=== PATIENT | male | born 1950 | race Caucasian/White ===

== ENCOUNTER 2016-09-20 21:23 | Emergency (ER) | payer OTHER ==
[~2016-09-20] VITALS: Ht 190.5 cm; Wt 84.0 kg
[~2016-09-20 21:23] MED LIST: ASPI-621 PO; ATOR80TA75 PO; CARV3.1212 PO; TICA90TA PO
[2016-09-20] MEDS ORDERED: SODIUM CHLORIDE FLUSH 10ML SYR IVF ONE (22:00)
[2016-09-20] MEDS ORDERED: NITROGLYCERIN OINT 2%, 1GM TP ONE ×2 (22:00→22:11)
[2016-09-20 22:32] LABS: BLOOD UREA NITROGEN 14 mg/dL (7-18)
[2016-09-20 22:37] LABS: IS PT STATUS REG ER OR PRE ER? YES
[2016-09-21 01:03] LABS: IS PT STATUS REG ER OR PRE ER? YES
[2016-09-21 01:30] VITALS: BP 108/53
== END 2016-09-21 01:32 | disposition home or self-care (01) ==
LOC: ED 22:16
DX: R07.89 Other chest pain (principal); E78.5 Hyperlipidemia, unspecified; F17.210 Nicotine dependence, cigarettes, uncomplicated; I25.2 Old myocardial infarction
CPT/HCPCS: 36415; 71010; 80048; 82040; 84484; 85025; 85610; 85730; 93005

== ENCOUNTER 2017-03-02 21:15 | Emergency (ER) | payer OTHER ==
[~2017-03-02] VITALS: Ht 190.5 cm; Wt 86.0 kg
[~2017-03-02 21:15] MED LIST changes: +ATOR-2 PO; -ATOR80TA75 PO
[2017-03-02] MEDS ORDERED: NITROGLYCERIN SINGLE TAB 0.4 MG SL ONE (21:52)
[2017-03-02] MEDS ORDERED: CARV3.122 PO (21:53)
[2017-03-02] MEDS ORDERED: NITROGLYCERIN SINGLE TAB 0.4 MG SL PRN (22:00)
[2017-03-02] MEDS ORDERED: ASPIRIN 81 MG TABLET CHEW PO ONE (22:00)
[2017-03-02 22:05] LABS: HEMATOCRIT 44.4 % (39.2-51.8); HEMOGLOBIN 14.9 g/dL (13.7-18.0); WHITE BLOOD COUNT 6.6 x10^3/uL (3.4-10)
[2017-03-02 22:16] LABS: BLOOD UREA NITROGEN 14 mg/dL (7-18)
[2017-03-02 22:20] LABS: IS PT STATUS REG ER OR PRE ER? YES
[2017-03-02 23:08] VITALS: BP 131/74
== END 2017-03-02 23:15 | disposition home or self-care (01) ==
LOC: ED 23:00
DX: R07.89 Other chest pain (principal); J44.9 Chronic obstructive pulmonary disease, unspecified; E78.5 Hyperlipidemia, unspecified; I21.4 Non-ST elevation (NSTEMI) myocardial infarction
CPT/HCPCS: 36415; 71020; 80048; 82040; 84484; 85025; 93005; 99285

== ENCOUNTER 2017-05-16 23:56 | Inpatient (IN) | payer OTHER ==
[~2017-05-16] VITALS: Ht 190.5 cm; Wt 83.5 kg
[~2017-05-16 23:56] MED LIST changes: +CARV3.122 PO
[2017-05-17] MEDS ORDERED: SODIUM CHLORIDE 0.9% 1,000 ML IV ONE (00:21)
[2017-05-17] MEDS ORDERED: SODIUM CHLORIDE FLUSH 10ML SYR IVF ONE (00:30)
[2017-05-17] MEDS ORDERED: ONDANSETRON 2MG/ML, 2ML IVPush ONE (00:30)
[2017-05-17] MEDS ORDERED: ASPIRIN 81 MG TABLET CHEW PO ONE (00:30)
[2017-05-17] MEDS ORDERED: SODIUM CHLORIDE 0.9% 1,000ML IVBOLUS ONE (00:30)
[2017-05-17] MEDS ORDERED: MORPHINE SULFATE 4 MG/ML, 1ML IVPush PRN (00:30)
[2017-05-17] MEDS ORDERED: ONDANSETRON ODT 4 MG ONE (00:30)
[2017-05-17] MEDS ORDERED: MORPHINE SULFATE 4 MG/ML, 1ML ONE (00:31)
[2017-05-17] MEDS ORDERED: ASPIRIN 81 MG TABLET CHEW ONE (00:31)
[2017-05-17 00:43] LABS: BASOPHILS # (AUTO) 0.04 x10^3/uL (0-0.1); BASOPHILS % (AUTO) 1 % (0-1); EOSINOPHILS # (AUTO) 0.27 x10^3/uL (0-0.4); EOSINOPHILS % (AUTO) 4 % (1-7); LYMPHOCYTES # (AUTO) 2.26 x10^3/uL (1-3.4); LYMPHOCYTES % (AUTO) 33 % (22-44); MD NO; MEAN CORPUSCULAR HEMOGLOBIN 30.6 pg (27.5-34.5); MEAN CORPUSCULAR HGB CONC 33.7 g/dL (33.2-36.2); MEAN CORPUSCULAR VOLUME 90.6 fL (81-97); MONOCYTES # (AUTO) 0.81 x10^3/uL (0.2-0.8); MONOCYTES % (AUTO) 12 % (2-9); NEUTROPHILS # (AUTO) 3.56 x10^3/uL (1.8-6.8); NEUTROPHILS % (AUTO) 51 % (42-75); PLATELET COUNT 223 x10^3/uL (130-400); RED BLOOD COUNT 5.27 x10^6/uL (4.38-5.82); RED CELL DISTRIBUTION WIDTH 13.7 % (9.4-14.8)
[2017-05-17 00:51] LABS: INTERNATIONAL NORMALIZED RATIO 0.99 (0.93-1.1); PROTHROMBIN TIME 10.3 Seconds (9.6-11.5)
[2017-05-17 00:54] LABS: ALANINE AMINOTRANSFERASE 27 U/L (12-78); ALBUMIN 3.7 g/dL (3.4-5.0); ANION GAP 10 mmol/L (5-15); CALCIUM 8.3 mg/dL (8.5-10.1); CHLORIDE 108 mmol/L (98-107); CREATININE 0.78 mg/dL (0.7-1.3)
[2017-05-17 00:58] LABS: ALKALINE PHOSPHATASE 50 U/L (45-117); BILIRUBIN,TOTAL 0.4 mg/dL (0.2-1.0); TROPONIN I < 0.015 ng/mL (0.000-0.045)
[2017-05-17] MEDS ORDERED: SODIUM CHLORIDE FLUSH 10ML SYR IVF PRN (01:30)
[2017-05-17] MEDS ORDERED: SODIUM CHLORIDE 0.9% 1,000 ML IV SCH (03:10)
[2017-05-17] MEDS ORDERED: ACETAMINOPHEN 325 MG TABLET PO PRN (03:30)
[2017-05-17] MEDS ORDERED: morphine SULFATE 10 MG/ML, 1ML IVPush PRN (03:30)
[2017-05-17] MEDS: HEPARIN 5,000 UNITS/ML, 1ML SQ SCH ×2 (03:30→11:30)
[2017-05-17] MEDS ORDERED: BISACODYL 10 MG SUPP PR PRN (03:30)
[2017-05-17] MEDS ORDERED: ENALAPRILAT 1.25 MG/ML, 2ML IVPush PRN (03:30)
[2017-05-17] MEDS ORDERED: hydrALAzine 20 MG/ML, 1ML IVPush PRN (03:30)
[2017-05-17] MEDS ORDERED: OXYcodone IR 5MG TABLET PO PRN (03:30)
[2017-05-17] MEDS ORDERED: ONDANSETRON 2MG/ML, 2ML IVPush PRN (03:30)
[2017-05-17] MEDS ORDERED: POLYETHYLENE GLYCOL 17 GM PACKET PO PRN (03:30)
[2017-05-17] MEDS ORDERED: NICOTINE 7 MG/24 HR PATCH.TD24 TD SCH (03:30)
[2017-05-17 03:48] LABS: HEMOGLOBIN A1C 5.6 % (4.2-6.3)
[2017-05-17 03:49] LABS: FREE T4 (FREE THYROXINE) 0.99 ng/dL (0.76-1.46); THYROID STIMULATING HORMONE 8.47 mIU/L (0.358-3.740)
[2017-05-17 04:49] VITALS: BP 117/69
[2017-05-17 05:39] LABS: TROPONIN I < 0.015 ng/mL (0.000-0.045)
[2017-05-17] MEDS ORDERED: CARVEDILOL 3.125 MG TABLET PO SCH (06:00)
[2017-05-17] MEDS ORDERED: ASPIRIN 81 MG TABLET EC PO SCH (06:00)
[2017-05-17 07:05] VITALS: BP 106/66
[2017-05-17] MEDS ORDERED: REGADENOSON 0.4 MG/5 ML SYRINGE ONE (08:41)
[2017-05-17] MEDS ORDERED: ATORVASTATIN 80 MG TABLET PO SCH (09:00)
[2017-05-17] MEDS ORDERED: FAMOTIDINE 20 MG TABLET PO SCH (09:00)
[2017-05-17] MEDS ORDERED: SENNA/DOCUSATE TABLET PO SCH (09:00)
[2017-05-17] MEDS ORDERED: FAMOTIDINE 20 MG/2 ML IVPush SCH (09:00)
[2017-05-17] MEDS ORDERED: TICAGRELOR 90 MG TABLET PO SCH (09:00)
[2017-05-17 12:32] LABS: TROPONIN I < 0.015 ng/mL (0.000-0.045)
[2017-05-17 12:58] VITALS: BP 110/71
== END 2017-05-17 15:21 | disposition home or self-care (01) | DRG 313 ==
LOC: ED 05-17 00:38 → EDIP 05-17 01:27 → 5SO 05-17 02:36
PROVIDERS: ADMIT Internal Medicine; ATTEND Hospitalist
DX: R07.9 Chest pain, unspecified (principal); I25.110 Atherosclerotic heart disease of native coronary artery with unstable angina pectoris; E78.5 Hyperlipidemia, unspecified; F17.210 Nicotine dependence, cigarettes, uncomplicated; I10 Essential (primary) hypertension; I25.2 Old myocardial infarction; I25.5 Ischemic cardiomyopathy; Z79.82 Long term (current) use of aspirin; Z95.5 Presence of coronary angioplasty implant and graft; Z79.899 Other long term (current) drug therapy
CPT/HCPCS: 36415; 71045; 78452; 80053; 83036; 83735; 84439; 84443; 84484; 85025; 85610; 85730; 93005; 93017; 96361; 96374; J2405; J2785; A9502; C9898; J7030

== ENCOUNTER 2017-05-31 07:42 | Emergency (ER) | payer OTHER ==
[~2017-05-31] VITALS: Ht 190.5 cm; Wt 85.6 kg
[2017-05-31] MEDS ORDERED: ASPIRIN 81 MG TABLET CHEW ONE (08:43)
[2017-05-31 08:51] LABS: BASOPHILS # (AUTO) 0.05 x10^3/uL (0-0.1); BASOPHILS % (AUTO) 1 % (0-1); EOSINOPHILS # (AUTO) 0.25 x10^3/uL (0-0.4); EOSINOPHILS % (AUTO) 3 % (1-7); LYMPHOCYTES # (AUTO) 1.63 x10^3/uL (1-3.4); LYMPHOCYTES % (AUTO) 18 % (22-44); MD NO; MEAN CORPUSCULAR HEMOGLOBIN 30.3 pg (27.5-34.5); MEAN CORPUSCULAR HGB CONC 33.6 g/dL (33.2-36.2); MEAN CORPUSCULAR VOLUME 90.2 fL (81-97); MEAN PLATELET VOLUME 7.8 fL (7.4-10.4); MONOCYTES # (AUTO) 0.76 x10^3/uL (0.2-0.8); MONOCYTES % (AUTO) 8 % (2-9); NEUTROPHILS # (AUTO) 6.42 x10^3/uL (1.8-6.8); NEUTROPHILS % (AUTO) 70 % (42-75); PLATELET COUNT 243 x10^3/uL (130-400); RED BLOOD COUNT 4.97 x10^6/uL (4.38-5.82); RED CELL DISTRIBUTION WIDTH 12.9 % (9.4-14.8)
[2017-05-31] MEDS ORDERED: ASPIRIN 81 MG TABLET CHEW PO ONE (09:00)
[2017-05-31 09:03] LABS: ALBUMIN 3.3 g/dL (3.4-5.0); ANION GAP 5 mmol/L (5-15); CALCIUM 8.3 mg/dL (8.5-10.1); CHLORIDE 107 mmol/L (98-107)
[2017-05-31 09:08] LABS: CREATININE 0.84 mg/dL (0.7-1.3); TROPONIN I < 0.015 ng/mL (0.000-0.045)
[2017-05-31 10:30] LABS: TROPONIN I < 0.015 ng/mL (0.000-0.045)
[2017-05-31 11:11] VITALS: BP 108/79
== END 2017-05-31 11:13 | disposition home or self-care (01) ==
LOC: ED 08:37
DX: R07.89 Other chest pain (principal); I25.2 Old myocardial infarction; F17.210 Nicotine dependence, cigarettes, uncomplicated; E78.00 Pure hypercholesterolemia, unspecified; Z95.5 Presence of coronary angioplasty implant and graft
CPT/HCPCS: 36415; 71045; 80048; 82040; 84484; 85025; 93005; 99285

== ENCOUNTER 2017-12-15 14:33 | Emergency (ER) | payer OTHER ==
[~2017-12-15] VITALS: Ht 190.5 cm; Wt 84.5 kg
[2017-12-15] MEDS ORDERED: SODIUM CHLORIDE FLUSH 10ML SYR IVF ONE (15:00)
[2017-12-15] MEDS ORDERED: SODIUM CHLORIDE 0.9% 1,000ML IVBOLUS ONE (15:00)
[2017-12-15] MEDS ORDERED: ASPIRIN 81 MG TABLET CHEW PO ONE (15:00)
[2017-12-15] MEDS ORDERED: MORPHINE SULFATE 4 MG/ML, 1ML IVPush PRN (15:00)
[2017-12-15] MEDS ORDERED: ONDANSETRON 2MG/ML, 2ML IVPush ONE (15:00)
[2017-12-15 15:28] LABS: BASOPHILS # (AUTO) 0.05 x10^3/uL (0-0.1); BASOPHILS % (AUTO) 1 % (0-1); EOSINOPHILS # (AUTO) 0.28 x10^3/uL (0-0.4); EOSINOPHILS % (AUTO) 4 % (1-7); LYMPHOCYTES # (AUTO) 2.15 x10^3/uL (1-3.4); LYMPHOCYTES % (AUTO) 35 % (22-44); MD NO; MEAN CORPUSCULAR HEMOGLOBIN 31.1 pg (27.5-34.5); MEAN CORPUSCULAR HGB CONC 34.1 g/dL (33.2-36.2); MEAN CORPUSCULAR VOLUME 91.1 fL (81-97); MEAN PLATELET VOLUME 7.9 fL (7.4-10.4); MONOCYTES # (AUTO) 0.92 x10^3/uL (0.2-0.8); MONOCYTES % (AUTO) 15 % (2-9); NEUTROPHILS # (AUTO) 2.84 x10^3/uL (1.8-6.8); NEUTROPHILS % (AUTO) 46 % (42-75); PLATELET COUNT 210 x10^3/uL (130-400); RED BLOOD COUNT 5.02 x10^6/uL (4.38-5.82); RED CELL DISTRIBUTION WIDTH 13.6 % (9.4-14.8)
[2017-12-15] MEDS ORDERED: ONDANSETRON ODT 4 MG PO ONE (15:30)
[2017-12-15 15:33] LABS: CALCIUM 8.5 mg/dL (8.5-10.1); CHLORIDE 110 mmol/L (98-107)
[2017-12-15 15:41] LABS: ALANINE AMINOTRANSFERASE 22 U/L (12-78); ALBUMIN 3.6 g/dL (3.4-5.0); ALKALINE PHOSPHATASE 51 U/L (45-117); ANION GAP 6 mmol/L (5-15); BILIRUBIN,TOTAL 0.5 mg/dL (0.2-1.0); CREATININE 0.86 mg/dL (0.7-1.3); TOTAL PROTEIN 6.9 g/dL (6.4-8.2); TROPONIN I < 0.015 ng/mL (0.000-0.045)
[2017-12-15 15:59] LABS: INTERNATIONAL NORMALIZED RATIO 0.99 (0.93-1.1); PROTHROMBIN TIME 10.2 Seconds (9.6-11.5)
[2017-12-15 17:15] VITALS: BP 109/58
[2017-12-15 18:16] LABS: TROPONIN I < 0.015 ng/mL (0.000-0.045)
== END 2017-12-15 18:49 | disposition home or self-care (01) ==
LOC: ED 16:56
DX: R07.2 Precordial pain (principal); E78.5 Hyperlipidemia, unspecified; I10 Essential (primary) hypertension; I25.2 Old myocardial infarction; Z79.899 Other long term (current) drug therapy
CPT/HCPCS: 36415; 71045; 80053; 84484; 85025; 85610; 93005; 96360; 99285; J7030

== ENCOUNTER 2018-01-11 04:38 | Observation (INO) | payer MEDICARE, OTHER ==
[~2018-01-11] VITALS: Ht 190.5 cm; Wt 81.6 kg
[2018-01-11] MEDS ORDERED: ONDANSETRON ODT 4 MG ONE (05:30)
[2018-01-11] MEDS ORDERED: ONDANSETRON ODT 4 MG PO PRN (05:30)
[2018-01-11] MEDS ORDERED: MECLIZINE CHEWABLE 25 MG TAB ONE (05:30)
[2018-01-11] MEDS ORDERED: MECLIZINE 12.5 MG TABLET PO PRN (05:30)
[2018-01-11] MEDS ORDERED: MECLIZINE CHEWABLE 25 MG TAB PO PRN ×2 (06:00→09:30)
[2018-01-11 06:28] LABS: BASOPHILS # (AUTO) 0.04 x10^3/uL (0-0.1); BASOPHILS % (AUTO) 1 % (0-1); EOSINOPHILS # (AUTO) 0.24 x10^3/uL (0-0.4); EOSINOPHILS % (AUTO) 4 % (1-7); LYMPHOCYTES # (AUTO) 1.47 x10^3/uL (1-3.4); LYMPHOCYTES % (AUTO) 26 % (22-44); MD NO; MEAN CORPUSCULAR HEMOGLOBIN 30.4 pg (27.5-34.5); MEAN CORPUSCULAR HGB CONC 33.8 g/dL (33.2-36.2); MEAN CORPUSCULAR VOLUME 89.9 fL (81-97); MEAN PLATELET VOLUME 8.1 fL (7.4-10.4); MONOCYTES # (AUTO) 0.58 x10^3/uL (0.2-0.8); MONOCYTES % (AUTO) 10 % (2-9); NEUTROPHILS # (AUTO) 3.42 x10^3/uL (1.8-6.8); NEUTROPHILS % (AUTO) 59 % (42-75); PLATELET COUNT 202 x10^3/uL (130-400); RED BLOOD COUNT 4.94 x10^6/uL (4.38-5.82); RED CELL DISTRIBUTION WIDTH 13.4 % (9.4-14.8)
[2018-01-11 06:32] LABS: ALBUMIN 3.5 g/dL (3.4-5.0); ANION GAP 7 mmol/L (5-15); CALCIUM 8.5 mg/dL (8.5-10.1); CHLORIDE 110 mmol/L (98-107)
[2018-01-11 06:37] LABS: CREATININE 0.84 mg/dL (0.7-1.3); TROPONIN I < 0.015 ng/mL (0.000-0.045)
[2018-01-11 07:58] VITALS: BP 106/69
[2018-01-11] MEDS ORDERED: METOCLOPRAMIDE 5 MG/ML, 2ML IVPush PRN (09:30)
[2018-01-11] MEDS ORDERED: hydrALAzine 20 MG/ML, 1ML IVPush PRN (09:30)
[2018-01-11] MEDS ORDERED: ATORVASTATIN 80 MG TABLET PO SCH (09:30)
[2018-01-11] MEDS ORDERED: GUAIFENESIN/COD200MG-20MG/10ML LIQUID PO PRN (09:30)
[2018-01-11] MEDS ORDERED: ACETAMINOPHEN 325 MG TABLET PO PRN (09:30)
[2018-01-11] MEDS: NICOTINE 7 MG/24 HR PATCH.TD24 TD SCH (10:36)
[2018-01-11] MEDS: ASPIRIN 81 MG TABLET EC PO SCH (10:36)
[2018-01-11] MEDS: TICAGRELOR 90 MG TABLET PO SCH ×2 (10:36→21:57)
[2018-01-11 11:30] LABS: CHOL/HDL RATIO 2.3
[2018-01-11 12:06] LABS: FREE T4 (FREE THYROXINE) 0.99 ng/dL (0.76-1.46)
[2018-01-11] MEDS ORDERED: GADOBUTROL 7.5 MMOL/7.5 ML PFS ONE (12:09)
[2018-01-11 12:35] LABS: TROPONIN I < 0.015 ng/mL (0.000-0.045)
[2018-01-11 13:20] VITALS: BP 115/73
[2018-01-11 18:28] LABS: TROPONIN I < 0.015 ng/mL (0.000-0.045)
[2018-01-11 21:52] VITALS: BP 124/76
[2018-01-12 03:30] VITALS: BP 121/70
[2018-01-12 05:10] LABS: ANION GAP 5 mmol/L (5-15); CALCIUM 8.2 mg/dL (8.5-10.1); CHLORIDE 110 mmol/L (98-107); CREATININE 0.82 mg/dL (0.7-1.3)
[2018-01-12 05:24] LABS: BASOPHILS # (AUTO) 0.03 x10^3/uL (0-0.1); BASOPHILS % (AUTO) 1 % (0-1); EOSINOPHILS # (AUTO) 0.22 x10^3/uL (0-0.4); EOSINOPHILS % (AUTO) 3 % (1-7); LYMPHOCYTES # (AUTO) 1.95 x10^3/uL (1-3.4); LYMPHOCYTES % (AUTO) 28 % (22-44); MD NO; MEAN CORPUSCULAR HEMOGLOBIN 30.6 pg (27.5-34.5); MEAN CORPUSCULAR HGB CONC 33.6 g/dL (33.2-36.2); MEAN PLATELET VOLUME 8.4 fL (7.4-10.4); MONOCYTES # (AUTO) 0.65 x10^3/uL (0.2-0.8); MONOCYTES % (AUTO) 9 % (2-9); NEUTROPHILS # (AUTO) 4.22 x10^3/uL (1.8-6.8); NEUTROPHILS % (AUTO) 60 % (42-75); PLATELET COUNT 191 x10^3/uL (130-400); RED BLOOD COUNT 4.86 x10^6/uL (4.38-5.82); RED CELL DISTRIBUTION WIDTH 13.3 % (9.4-14.8)
[2018-01-12] MEDS: ASPIRIN 81 MG TABLET EC PO SCH (06:57)
[2018-01-12 07:27] VITALS: BP 102/65
[2018-01-12] MEDS: TICAGRELOR 90 MG TABLET PO SCH (09:06)
[2018-01-12] MEDS: NICOTINE 7 MG/24 HR PATCH.TD24 TD SCH (11:10)
[2018-01-12 12:16] VITALS: BP 134/77
[2018-01-12] MEDS ORDERED: LEVO25TA2 PO (15:06)
== END 2018-01-12 16:13 | disposition home or self-care (01) ==
LOC: ED 05:30 → INTOOBSV 06:59 → EDIP 06:59 → 5SO 07:37 → DCLOUNGE 01-12 15:58
PROVIDERS: ADMIT Internal Medicine; ATTEND Internal Medicine
DX: R42 Dizziness and giddiness (principal); E78.5 Hyperlipidemia, unspecified; I10 Essential (primary) hypertension; I25.10 Atherosclerotic heart disease of native coronary artery without angina pectoris; I25.5 Ischemic cardiomyopathy; I25.2 Old myocardial infarction; E03.9 Hypothyroidism, unspecified; F17.210 Nicotine dependence, cigarettes, uncomplicated; I35.1 Nonrheumatic aortic (valve) insufficiency; I45.2 Bifascicular block; Z95.5 Presence of coronary angioplasty implant and graft
CPT/HCPCS: 36415; 70450; 70553; 71045; 80048; 80061; 82040; 83735; 84100; 84439; 84443; 84484; 85025; 93005; 93306; 93880; 97162; 99285; A9585; G0378; G8978; G8979; G8980; Q0162

== ENCOUNTER 2018-08-17 19:49 | Emergency (ER) | payer OTHER ==
[~2018-08-17] VITALS: Ht 190.5 cm; Wt 83.6 kg
[~2018-08-17 19:49] MED LIST changes: -ASPI-621 PO; +ASPI81TA45 PO; +LEVO25TA2 PO
[2018-08-17 19:50] VITALS: BP 123/80
[2018-08-17] MEDS ORDERED: ASPIRIN 81 MG TABLET CHEW PO ONE (20:30)
[2018-08-17] MEDS ORDERED: ASPIRIN 81 MG TABLET CHEW ONE (20:34)
[2018-08-17 20:59] LABS: BASOPHILS # (AUTO) 0.03 x10^3/uL (0-0.1); BASOPHILS % (AUTO) 1 % (0-1); EOSINOPHILS # (AUTO) 0.26 x10^3/uL (0-0.4); EOSINOPHILS % (AUTO) 4 % (1-7); LYMPHOCYTES # (AUTO) 1.82 x10^3/uL (1-3.4); LYMPHOCYTES % (AUTO) 28 % (22-44); MD NO; MEAN CORPUSCULAR HEMOGLOBIN 30.3 pg (27.5-34.5); MEAN CORPUSCULAR HGB CONC 33.2 g/dL (33.2-36.2); MEAN CORPUSCULAR VOLUME 91.3 fL (81-97); MONOCYTES % (AUTO) 12 % (2-9); NEUTROPHILS # (AUTO) 3.65 x10^3/uL (1.8-6.8); NEUTROPHILS % (AUTO) 56 % (42-75); PLATELET COUNT 211 x10^3/uL (130-400); RED BLOOD COUNT 5.21 x10^6/uL (4.38-5.82); RED CELL DISTRIBUTION WIDTH 13.4 % (9.4-14.8)
[2018-08-17 21:01] LABS: INTERNATIONAL NORMALIZED RATIO 0.97 (0.93-1.1); PROTHROMBIN TIME 10.2 Seconds (9.6-11.5)
[2018-08-17 21:02] LABS: ALBUMIN 3.6 g/dL (3.4-5.0); ANION GAP 5 mmol/L (5-15); CALCIUM 8.7 mg/dL (8.5-10.1); CHLORIDE 109 mmol/L (98-107); CREATININE 0.81 mg/dL (0.7-1.3)
[2018-08-17 21:06] LABS: TROPONIN I < 0.015 ng/mL (0.000-0.045)
== END 2018-08-17 21:54 | disposition left against medical advice (07) ==
LOC: ED 20:22
DX: R07.89 Other chest pain (principal); I25.2 Old myocardial infarction; E78.5 Hyperlipidemia, unspecified; I10 Essential (primary) hypertension; F17.210 Nicotine dependence, cigarettes, uncomplicated
CPT/HCPCS: 36415; 71045; 80048; 82040; 84484; 85025; 85610; 85730; 93005; 99284